=== PATIENT | female | born 1975 | race Caucasian/White ===

== ENCOUNTER 2018-05-12 12:03 | Outpatient (CLI) | payer OTHER | END 2018-05-12 12:53 | disposition home or self-care (01) | LOC: EKG 12:03 | DX: R07.89 Other chest pain (principal) ==

== ENCOUNTER 2018-05-12 14:14 | Outpatient (CLI) | payer OTHER | END 2018-05-16 09:06 | disposition home or self-care (01) | LOC: RAD 14:14 | DX: Z12.31 Encounter for screening mammogram for malignant neoplasm of breast (principal); N60.11 Diffuse cystic mastopathy of right breast; N91.1 Secondary amenorrhea; R05 Cough ==

== ENCOUNTER 2018-05-13 08:09 | Outpatient (CLI) | payer OTHER | END 2018-05-13 08:15 | disposition home or self-care (01) | LOC: LAB 08:09 | DX: N91.1 Secondary amenorrhea (principal); N97.8 Female infertility of other origin; E34.8 Other specified endocrine disorders; Z11.9 Encounter for screening for infectious and parasitic diseases, unspecified; Z13.0 Encounter for screening for diseases of the blood and blood-forming organs and certain disorders involving the immune mechanism; E55.9 Vitamin D deficiency, unspecified; Z11.59 Encounter for screening for other viral diseases; Z01.84 Encounter for antibody response examination ==

== ENCOUNTER 2018-08-30 12:00 | Outpatient (CLI) | payer OTHER | END 2018-08-30 15:00 | disposition home or self-care (01) | LOC: LAB 12:00 | DX: N97.0 Female infertility associated with anovulation (principal) ==

== ENCOUNTER → 2018-08-30 | Outpatient (CLI) | payer OTHER | END | disposition home or self-care (01) | LOC: SONOGRAMA 08:05 | DX: R10.2 Pelvic and perineal pain (principal) ==

== ENCOUNTER → 2019-02-07 | Emergency (ER) | payer OTHER ==
[~2019-02-07] VITALS: Ht 175.3 cm; Wt 76.7 kg
[~2019-02-07] MED LIST: KETO10TA2 PO; ORPHENADRINE C100 MG PO
== END | disposition home or self-care (01) ==
LOC: ER 20:47
DX: M54.5 Low back pain (principal)

== ENCOUNTER 2021-02-16 08:10 | Outpatient (CLI) | payer OTHER | END 2021-02-16 08:26 | disposition home or self-care (01) | LOC: RAD 08:10 → MRI 08:10 | PROVIDERS: ATTEND General Practice | DX: M25.551 Pain in right hip (principal) | CPT/HCPCS: 73718 ==

== ENCOUNTER 2021-05-13 09:00 | Outpatient (CLI) | payer OTHER | END 2021-05-13 09:30 | disposition home or self-care (01) | LOC: PPH VACUNA 09:00 | PROVIDERS: ATTEND Emergency Medicine Pediatric Emergency Medicine | DX: Z23 Encounter for immunization (principal) ==